=== PATIENT | female | born 2000 | race Caucasian/White ===

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

== ENCOUNTER 2018-01-08 11:28 | Emergency (ER) | payer OTHER ==
[~2018-01-08] VITALS: Ht 167.6 cm; Wt 64.0 kg
[2018-01-08] MEDS ORDERED: ZOFRAN4 MG/TAB PO (12:25)
[2018-01-08 12:44] LABS: URINE BILIRUBIN - DIPSTICK NEGATIVE (NEGATIVE); URINE BLOOD DIPSTICK NEGATIVE (NEGATIVE); URINE COLOR YELLOW; URINE GLUCOSE - DIPSTICK NEGATIVE (NEGATIVE); URINE KETONE >=80 mg/dL (NEGATIVE); URINE LEUK ESTERASE TRACE (NEGATIVE); URINE NITRITE - DIPSTICK NEGATIVE (Negative); URINE PROTEIN - DIPSTICK NEGATIVE (NEG-TRACE); URINE UROBILINOGEN - DIPSTICK 0.2 E.U./dL (0.2)
[2018-01-08 12:49] LABS: HEMATOCRIT 33.5 % (37.0-47.0); HEMOGLOBIN 11.4 g/dl (12.0-16.0); IMMATURE GRANULOCYTES 0.4 % (0.0-1.0); MEAN CELL VOLUME 91.3 fL CALC (80.0-100.0); MEAN CORPUSCULAR HGB 31.1 pG CALC (26.0-32.0); NEUT# 7.97 thou/uL (2.00-7.15); RED BLOOD COUNT 3.67 mill/uL (4.20-5.60)
[2018-01-08 12:55] LABS: ANION GAP 13 (6-22 (CALC)); BUN 6 mg/dL (8-21); BUN/CREATININE RATIO 11 (12-20 (CALC)); CARBON DIOXIDE 21 mmol/l (22-30); CHLORIDE 105 mmol/l (95-108); CREATININE 0.5 mg/dL (0.5-1.0); GFR > 60 ML/MIN (>=60 (CALC)); GFR FOR AFR.AMER. > 60 ML/MIN (>=60 (CALC)); POTASSIUM 3.6 mmol/l (3.5-5.1); SODIUM 136 mmol/l (137-146)
[2018-01-08 12:56] LABS: URINE CLARITY CLOUDY
[2018-01-08 13:51] LABS: BETA-HCG, QUANT(RESULT NUMBER) 62048 mIU/mL
[2018-01-08 14:04] VITALS: BP 96/61
== END 2018-01-08 14:04 | disposition home or self-care (01) | DRG 781 ==
LOC: ED 11:28
PROVIDERS: Family Medicine
DX: O26.892 Other specified pregnancy related conditions, second trimester (principal); E86.0 Dehydration; R11.2 Nausea with vomiting, unspecified; R53.1 Weakness; R42 Dizziness and giddiness; H53.8 Other visual disturbances; R55 Syncope and collapse; Z3A.16 16 weeks gestation of pregnancy; Y92.009 Unspecified place in unspecified non-institutional (private) residence as the place of occurrence of the external cause

== ENCOUNTER 2018-03-30 13:55 | Emergency (ER) | payer OTHER ==
[~2018-03-30] VITALS: Ht 167.6 cm; Wt 68.0 kg
[~2018-03-30 13:55] MED LIST: ZOFRAN4 MG/TAB PO
[2018-03-30 15:02] LABS: HEMATOCRIT 37.5 % (37.0-47.0); HEMOGLOBIN 12.7 g/dl (12.0-16.0); IMMATURE GRANULOCYTES 0.5 % (0.0-1.0); MEAN CORPUSCULAR HGB 31.8 pG CALC (26.0-32.0); MEAN CORPUSCULAR HGB CONC 33.9 g/L CALC (32.0-36.0); NEUT# 8.54 thou/uL (2.00-7.15); RED BLOOD COUNT 3.99 mill/uL (4.20-5.60); RED CELL DISTRI WIDTH 11.9 % (11.5-15.5)
[2018-03-30 15:04] LABS: URINE BILIRUBIN - DIPSTICK NEGATIVE (NEGATIVE); URINE BLOOD DIPSTICK NEGATIVE (NEGATIVE); URINE COLOR YELLOW; URINE GLUCOSE - DIPSTICK NEGATIVE (NEGATIVE); URINE KETONE NEGATIVE (NEGATIVE); URINE LEUK ESTERASE NEGATIVE (NEGATIVE); URINE NITRITE - DIPSTICK NEGATIVE (Negative); URINE PROTEIN - DIPSTICK NEGATIVE (NEG-TRACE); URINE UROBILINOGEN - DIPSTICK 0.2 E.U./dL (0.2)
[2018-03-30 15:08] LABS: URINE CLARITY CLEAR
[2018-03-30 15:22] LABS: ALBUMIN 3.7 g/dL (3.2-5.0); ALKALINE PHOSPHATASE 80 u/l (38-126); ANION GAP 16 (6-22 (CALC)); BILIRUBIN, TOTAL 0.4 mg/dL (0.0-1.4); BUN 6 mg/dL (8-21); BUN/CREATININE RATIO 13 (12-20 (CALC)); CARBON DIOXIDE 21 mmol/l (22-30); CHLORIDE 105 mmol/l (95-108); CREATININE 0.5 mg/dL (0.5-1.0); GFR > 60 ML/MIN (>=60 (CALC)); GFR FOR AFR.AMER. > 60 ML/MIN (>=60 (CALC)); POTASSIUM 4.2 mmol/l (3.5-5.1); SGOT/AST 19 u/l (14-36); SGPT/ALT 29 u/l (9-52); SODIUM 137 mmol/l (137-146); TOTAL PROTEIN 7.2 g/dL (6.3-8.2)
[2018-03-30 16:25] VITALS: BP 138/78
== END 2018-03-30 16:29 | disposition home or self-care (01) | DRG 781 ==
LOC: ED 13:55
PROVIDERS: Family Medicine
DX: O99.283 Endocrine, nutritional and metabolic diseases complicating pregnancy, third trimester (principal); E86.0 Dehydration; O21.2 Late vomiting of pregnancy; Z3A.27 27 weeks gestation of pregnancy

== ENCOUNTER 2020-04-25 15:04 | Emergency (ER) | payer SELFPAY ==
[2020-04-25] MEDS ORDERED: MOTRIN400 MG/TAB PO ×2 (21:44)
== END 2020-04-25 15:44 | disposition left against medical advice (07) | DRG 951 ==
LOC: ED 15:04 → LWOBS 15:43
DX: Z91.19 Patient's noncompliance with other medical treatment and regimen (principal)

== ENCOUNTER 2020-04-25 16:33 | Emergency (ER) | payer SELFPAY ==
[2020-04-25 21:00] VITALS: BP 108/66
[2020-04-25] MEDS ORDERED: MOTRIN400 MG/TAB PO ×2 (21:44)
== END 2020-04-25 21:50 | disposition home or self-care (01) | DRG 605 ==
LOC: ED 16:33
DX: S70.01XA Contusion of right hip, initial encounter (principal); W01.0XXA Fall on same level from slipping, tripping and stumbling without subsequent striking against object, initial encounter; Y93.H2 Activity, gardening and landscaping; Y92.007 Garden or yard of unspecified non-institutional (private) residence as the place of occurrence of the external cause

== ENCOUNTER 2020-07-14 15:58 | Emergency (ER) | payer SELFPAY ==
[~2020-07-14] VITALS: Ht 167.6 cm; Wt 60.0 kg
[~2020-07-14 15:58] MED LIST changes: +MOTRIN400 MG/TAB PO
[2020-07-14 16:41] LABS: HEMATOCRIT 39.7 % (37.0-47.0); HEMOGLOBIN 12.6 g/dl (12.0-16.0); IMMATURE GRANULOCYTES 0.2 % (0.0-5.0); MEAN CELL VOLUME 91.9 fL CALC (80.0-100.0); MEAN CORPUSCULAR HGB 29.2 pG CALC (26.0-32.0); MEAN CORPUSCULAR HGB CONC 31.7 g/dL CAL (32.0-36.0); NEUT# 5.8 thou/uL (2.00-7.15); RED BLOOD COUNT 4.32 mill/uL (4.20-5.60); RED CELL DISTRI WIDTH 12.7 % (11.5-15.5)
[2020-07-14 16:44] LABS: URINE BILIRUBIN - DIPSTICK NEGATIVE (NEGATIVE); URINE BLOOD DIPSTICK NEGATIVE (NEGATIVE); URINE CLARITY CLEAR; URINE COLOR YELLOW; URINE GLUCOSE - DIPSTICK NEGATIVE (NEGATIVE); URINE KETONE NEGATIVE (NEGATIVE); URINE LEUK ESTERASE NEGATIVE (Negative); URINE NITRITE - DIPSTICK NEGATIVE (Negative); URINE PROTEIN - DIPSTICK NEGATIVE (NEG-TRACE); URINE SPECIFIC GRAVITY 1.025; URINE UROBILINOGEN - DIPSTICK 0.2 E.U./dL (0.2)
[2020-07-14 16:52] LABS: ALBUMIN 4.3 g/dL (3.2-5.0); ALKALINE PHOSPHATASE 85 u/l (38-126); AMYLASE 80 u/l (30-110); ANION GAP 9 (6-22 (CALC)); BILIRUBIN, TOTAL 0.4 mg/dL (0.0-1.4); BUN 15 mg/dL (7-17); BUN/CREATININE RATIO 26 (12-20 (CALC)); CHLORIDE 102 mmol/l (95-108); CREATININE 0.6 mg/dL (0.5-1.0); GFR > 60 ML/MIN (>=60 (CALC)); GFR FOR AFR.AMER. > 60 ML/MIN (>=60 (CALC)); LIPASE 117 u/l (23-300); POTASSIUM 3.9 mmol/l (3.5-5.1); SGOT/AST 29 u/l (14-36); SODIUM 134 mmol/l (137-146); TOTAL PROTEIN 7.5 g/dL (6.3-8.2)
[2020-07-14 16:53] LABS: CARBON DIOXIDE 27 mmol/l (22-30)
[2020-07-14 18:54] VITALS: BP 101/56
== END 2020-07-14 19:13 | disposition home or self-care (01) | DRG 392 ==
LOC: ED 15:58
DX: R10.13 Epigastric pain (principal); R10.12 Left upper quadrant pain; R59.0 Localized enlarged lymph nodes
CPT/HCPCS: Q9967

== ENCOUNTER 2020-10-15 17:55 | Emergency (ER) | payer SELFPAY ==
[~2020-10-15] VITALS: Ht 167.6 cm; Wt 50.0 kg
[2020-10-15 18:57] LABS: URINE BILIRUBIN - DIPSTICK NEGATIVE (NEGATIVE); URINE BLOOD DIPSTICK TRACE-INTACT (NEGATIVE); URINE COLOR YELLOW; URINE GLUCOSE - DIPSTICK NEGATIVE (NEGATIVE); URINE KETONE NEGATIVE (NEGATIVE); URINE LEUK ESTERASE TRACE (NEGATIVE); URINE NITRITE - DIPSTICK NEGATIVE (Negative); URINE PROTEIN - DIPSTICK NEGATIVE (NEG-TRACE); URINE SPECIFIC GRAVITY 1.015; URINE UROBILINOGEN - DIPSTICK 0.2 E.U./dL (0.2)
[2020-10-15 18:58] LABS: HEMATOCRIT 41.8 % (37.0-47.0); HEMOGLOBIN 13.9 g/dl (12.0-16.0); IMMATURE GRANULOCYTES 0.2 % (0.0-5.0); MEAN CELL VOLUME 91.1 fL CALC (80.0-100.0); MEAN CORPUSCULAR HGB 30.3 pG CALC (26.0-32.0); MEAN CORPUSCULAR HGB CONC 33.3 g/dL CAL (32.0-36.0); NEUT# 3.01 thou/uL (2.00-7.15); RED BLOOD COUNT 4.59 mill/uL (4.20-5.60); RED CELL DISTRI WIDTH 12.1 % (11.5-15.5)
[2020-10-15 19:00] LABS: HCG SERUM/URINE (NEG/POS) NEGATIVE (NEGATIVE)
[2020-10-15 19:11] LABS: URINE AMORPH SEDIMENT MANY hpf (NONE-FEW); URINE RBC 0-2 RBC/hpf (0-5); URINE SQUAMOUS EPITHELIAL CELL FEW EPI/hpf (0-FEW); URINE WBC 0-2 WBC/hpf (0-5)
[2020-10-15 19:15] LABS: ALBUMIN 4.2 g/dL (3.2-5.0); ALKALINE PHOSPHATASE 64 u/l (38-126); ANION GAP 10 (6-22 (CALC)); BUN 9 mg/dL (7-17); BUN/CREATININE RATIO 15 (12-20 (CALC)); CARBON DIOXIDE 29 mmol/l (22-30); CHLORIDE 104 mmol/l (95-108); CREATININE 0.6 mg/dL (0.5-1.0); GFR > 60 ML/MIN (>=60 (CALC)); GFR FOR AFR.AMER. > 60 ML/MIN (>=60 (CALC)); LIPASE 122 u/l (23-300); SGOT/AST 19 u/l (14-36); SODIUM 139 mmol/l (137-146); TOTAL PROTEIN 7.5 g/dL (6.3-8.2)
[2020-10-15 19:21] LABS: BILIRUBIN, TOTAL 0.6 mg/dL (0.0-1.4)
[2020-10-15] MEDS ORDERED: ZOFRAN4 MG/TAB PO (20:45)
[2020-10-15 20:50] VITALS: BP 109/67
== END 2020-10-15 20:52 | disposition home or self-care (01) | DRG 392 ==
LOC: ED 17:55
PROVIDERS: Family Medicine
DX: R11.2 Nausea with vomiting, unspecified (principal); R19.7 Diarrhea, unspecified; R10.84 Generalized abdominal pain; R30.0 Dysuria; R42 Dizziness and giddiness; N83.209 Unspecified ovarian cyst, unspecified side; Z20.828 Contact with and (suspected) exposure to other viral communicable diseases
CPT/HCPCS: Q9967

== ENCOUNTER 2024-08-16 07:00 | Emergency (ER) | payer SELFPAY ==
[2024-08-16] VITALS (9 sets, daily range): BP systolic 89–126; BP diastolic 45–81
[~2024-08-16] VITALS: Ht 167.6 cm; Wt 58.9 kg
[~2024-08-16 07:00] MED LIST changes: +NAPROXEN500 MG PO; +TRAMADOL HYDROC50 M1 PO
[2024-08-16] MEDS ORDERED: IBUPROFEN 200 MG/TAB PO ONE (08:00)
[2024-08-16] MEDS ORDERED: ZPAK PO (08:54)
== END 2024-08-16 09:13 | disposition home or self-care (01) | DRG 153 ==
LOC: ED 07:00
DX: J06.9 Acute upper respiratory infection, unspecified (principal); Z20.822 Contact with and (suspected) exposure to COVID-19

== ENCOUNTER 2024-11-18 03:55 | Emergency (ER) | payer SELFPAY ==
[~2024-11-18] VITALS: Ht 167.6 cm; Wt 61.0 kg
[~2024-11-18 03:55] MED LIST changes: +BACTRIM DS1 TAB PO; +MEDICAL MARIJUANA; +ZPAK PO
[2024-11-18] MEDS ORDERED: KETOROLAC TROMETHAMINE 30 MG/ML SDV IV ONE (04:30)
[2024-11-18] MEDS ORDERED: PROMETHAZINE HCL 25 MG/ML AMP IV ONE (04:30)
[2024-11-18] MEDS ORDERED: SODIUM CHLORIDE 0.9% 1,000 ML IV ONE (04:30)
[2024-11-18 05:16] LABS: BASO% 0.7 % (0-3); EOS% 1.8 % (0-8); HEMATOCRIT 44.7 % (37.0-47.0); HEMOGLOBIN 14.9 g/dl (12.0-16.0); IMMATURE GRANULOCYTES 0.7 % (0.0-5.0); LYMPH% 18.9 % (15-41); MEAN CELL VOLUME 93.5 fL CALC (80.0-100.0); MEAN CORPUSCULAR HGB 31.2 pG CALC (26.0-32.0); MEAN CORPUSCULAR HGB CONC 33.3 g/dL CAL (32.0-36.0); MONO% 12.1 % (2-13); NEUT# 3.7 thou/uL (2.00-7.15); NEUT% 65.8 % (42-76); RED BLOOD COUNT 4.78 mill/uL (4.20-5.60); RED CELL DISTRI WIDTH 11.7 % (11.5-15.5)
[2024-11-18 05:18] LABS: HCG SERUM/URINE (NEG/POS) NEGATIVE (NEGATIVE)
[2024-11-18] MEDS ORDERED: PROMETHAZINE HY25 M1 PO (06:18)
[2024-11-18 06:29] VITALS: BP 116/71
== END 2024-11-18 06:32 | disposition home or self-care (01) | DRG 866 ==
LOC: ED 03:55
PROVIDERS: Family Medicine
DX: B34.9 Viral infection, unspecified (principal)
CPT/HCPCS: J2550